=== PATIENT | male | born 1975 | race Caucasian/White ===

== ENCOUNTER 2021-03-09 21:53 | Inpatient (IN) | payer OTHER, SELFPAY ==
[~2021-03-09] VITALS: Ht 180.3 cm; Wt 120.2 kg
--- NOTE | 2021-03-09 21:54 | NUR ---
PT HIEN ALS. TAKEN TO BED 2
[2021-03-09 21:59] VITALS: BP 94/44
--- NOTE | 2021-03-09 21:59 | NUR ---
45 YO M BIBA WITH C/C OF GEN WEAKNESS X2 WKS. WHEN EMS ARRIVED PT WAS SOB AND DIAPHORETIC, PLACED ON 02 5L 02 SAT 96%. EMS STATED BP WAS FINE AND BEGAN DROPPING ON THE WAY HERE. BS WAS TOO HIGH TO READ FOR EMS. BLOOD SUGAR RETAKEN READ 556. PT STATED HE HAS ACHING ABD PAIN 4/10 NON RAD X1DAY. PT STATED HE HAS BEEN HAVING N/V/D, DARK STOOL AND EMESIS. PT IS JEHIVAH WITNESS, NO BLOOD PRODUCTS. BP 94/44 95% ON 5L. HX:DM NONCOMPLIANT RX;METFORMIN NKA.
[2021-03-09] MEDS ORDERED: PANTOPRAZOLE 40 MG INJ VIAL IVP ONE (22:25)
[2021-03-09] MEDS ORDERED: cefTRIAXone 2,000 MG in DEXTROSE 5% 100 ML IV ONE (22:25)
[2021-03-09] MEDS ORDERED: NACL 0.9% 1,000 ML IV ONE ×2 (22:25)
[2021-03-09] MEDS ORDERED: cefTRIAXone 1,000 MG VIAL ONE (22:32)
[2021-03-09 22:57] LABS: BASOPHILS # (AUTO) 0.1 K/uL (0.00-0.22); BASOPHILS % (AUTO) 0.4 % (0.0-2.0); EOSINOPHILS % (AUTO) 0.1 % (0.0-4.0); HEMATOCRIT 28.3 % (36-52); HEMOGLOBIN 9.4 g/dL (12.0-18.0); MEAN CORPUSCULAR HEMOGLOBIN 31 pg (27-31); MEAN CORPUSCULAR HGB CONC 33 g/dL (33-37); MEAN CORPUSCULAR VOLUME 93.1 fL (80-94); MONOCYTES # (AUTO) 1.3 K/uL (0.8-1.0); MONOCYTES % (AUTO) 6.3 % (1.7-9.3); NEUTROPHILS # (AUTO) 17.6 K/uL (1.8-7.7); NEUTROPHILS % (AUTO) 88.2 % (42.2-75.2); PLATELET COUNT (AUTO) 95 K/uL (140-450); RED BLOOD CELL COUNT(AUTO) 3.03 MIL/uL (4.20-6.10); RED CELL DISTRIBUTION WIDTH 12.8 % (11.6-13.7)
[2021-03-09 23:12] LABS: PROTHROMBIN TIME 13.4 secs (10.8-13.4)
[2021-03-09 23:21] LABS: ALBUMIN 1.5 g/dL (3.4-5.0); AMYLASE 37 U/L (25-115); ASPARTATE AMINOTRANSFERASE 23 U/L (15-37); CARBON DIOXIDE 14.2 mmol/L (21-32); CHLORIDE 91 mmol/L (98-107); CREATININE 2.3 mg/dL (0.6-1.3); GFR ARICAN-AMERICAN 40 mL/min (>90); LIPASE 459 U/L (73-393); POTASSIUM 4.2 mmol/L (3.5-5.1); SODIUM SERUM 126 mmol/L (136-145); TOTAL BILIRUBIN 0.9 mg/dL (0.0-1.0)
--- NOTE | 2021-03-09 23:23 | NUR ---
PT TAKEN TO XRAY VIA W/C
[2021-03-09 23:25] LABS: APPEARANCE,URINE CLOUDY (CLEAR); BILIRUBIN,URINE NEGATIVE (NEGATIVE); BLOOD, URINE NEGATIVE (NEGATIVE); COLOR,URINE YELLOW (YELLOW); LEUKOCYTE ESTERASE ,URINE NEGATIVE (NEGATIVE); NITRITE, URINE NEGATIVE (NEGATIVE); UGLUCOSE 2+ (NEGATIVE)
[2021-03-09 23:26] LABS: ACETONE, SERUM LARGE (NEGATIVE)
--- NOTE | 2021-03-09 23:26 | NUR ---
LAB REPORTED ACETONE POS LARGE, DR MONTOYA MADE AWARE.
[2021-03-09 23:28] LABS: GLUCOSE 685 mg/dL (74-106); UREA NITROGEN, BLOOD 102 mg/dL (7-18)
--- NOTE | 2021-03-09 23:29 | NUR ---
LAB REPORTED BLOOD GLUCOSE 685, DR MONTOYA MADE AWARE.
--- NOTE | 2021-03-09 23:35 | NUR ---
LAB REPORTED LACTIC ACIS 6.6, DR MONTOYA MADE AWARE.
[2021-03-10] VITALS (10 sets, daily range): BP systolic 99–160; BP diastolic 47–77
[2021-03-10] MEDS ORDERED: INSULIN REGULAR, HUMAN 100 UNIT in NACL 0.9% 100 ML IV ONE ×2 (00:05)
--- NOTE | 2021-03-10 00:50 | NUR ---
INCREASED RESP RATE AND USE OF ACCESORY MUSCLE, STRENAL RETRACTIONS CONTCARLOTA MADE AWARE.
--- NOTE | 2021-03-10 00:57 | NUR ---
RT AT BEDSIDE
--- NOTE | 2021-03-10 00:58 | NUR ---
PLACED PT ON BiPAP WITH PRESSURE SUPPORT OF 10. PT STILL BREATHING IN 60s. COMMUNICATE SETTINGS TO MD. MD CAME TO BEDSIDE AND SPOKE TO PT. PT REFUSED BiPAP. WILL CONTINUE TO MONITOR PT.
[2021-03-10] MEDS ORDERED: INSULIN REGULAR, HUMAN 100 UNIT in NACL 0.9% 100 ML IV SCH ×6 (01:05→05:25)
[2021-03-10] MEDS ORDERED: MORPHINE SULFATE 2 MG/ML SYR IVP PRN (01:05)
[2021-03-10] MEDS ORDERED: DEXTROSE 50% 50 ML SYR IVP PRN ×2 (01:05→05:25)
[2021-03-10] MEDS ORDERED: ONDANSETRON 4 MG/2 ML VIAL IVP PRN (01:05)
[2021-03-10] MEDS: NACL 0.9% 1,000 ML IV SCH ×2 (01:05→06:59)
--- NOTE | 2021-03-10 01:40 | NUR ---
PLACED PT ON HFNC 40L, 100%. TEMP 33. SPO2 99%. PT TOLERATING WELL. RN AND MD NOTIFIED.
[2021-03-10] MEDS: BLOOD GLUCOSE MONITORING 1 DEV DEV FS SCH ×24 (01:53→23:25)
[2021-03-10] MEDS ORDERED: cefTRIAXone 2,000 MG VIAL ONE (02:27)
[2021-03-10] MEDS ORDERED: cefTRIAXone 1,000 MG VIAL ONE (02:29)
[2021-03-10 04:20] LABS: CREATINE KINASE MB 0.3 ng/mL (0-3.6)
[2021-03-10 04:55] LABS: ANION GAP 24.1 (8-16); CARBON DIOXIDE 13.8 mmol/L (21-32); CREATININE 2.1 mg/dL (0.6-1.3); POTASSIUM 3.9 mmol/L (3.5-5.1)
--- NOTE | 2021-03-10 05:22 | NUR ---
INSERTED WEIGHT WRONG, CALLED TO CORRECT INSULIN ORDER. ORDER CARRIED OUT.
--- NOTE | 2021-03-10 05:50 | NUR ---
PAGED ABOUT PT'S CONDITION. RR FLUCTUATES BETWEEN 30-60. AT THIS TIME IT IS 60 AT REST AND HR CONTINUES TO BE HIGH. MENTATION IS BETTER. HR IS AT 120. WAITING FOR CALL BACK.
--- NOTE | 2021-03-10 06:09 | NUR ---
CALLED BACK STATED HE WILL PUT IN ORDERS.
--- NOTE | 2021-03-10 06:49 | NUR ---
BACK FROM CT.
[2021-03-10 06:54] LABS: HEMATOCRIT 24.8 % (36-52); HEMOGLOBIN 8.4 g/dL (12.0-18.0); MEAN CORPUSCULAR HEMOGLOBIN 31 pg (27-31); MEAN CORPUSCULAR HGB CONC 34 g/dL (33-37); MEAN CORPUSCULAR VOLUME 90.8 fL (80-94); PLATELET COUNT (AUTO) 136 K/uL (140-450); RED BLOOD CELL COUNT(AUTO) 2.73 MIL/uL (4.20-6.10); RED CELL DISTRIBUTION WIDTH 12.7 % (11.6-13.7); WHITE BLOOD COUNT (AUTO) 21.7 K/uL (4.8-10.8)
--- NOTE | 2021-03-10 07:04 | NUR ---
ORAL INTAKE 720 URINE OUTPUT:825
--- NOTE | 2021-03-10 07:09 | NUR ---
RT AT BEDSIDE.
[2021-03-10 07:11] LABS: ALBUMIN 1.5 g/dL (3.4-5.0); ANION GAP 17.1 (8-16); CREATININE 1.8 mg/dL (0.6-1.3); POTASSIUM 4.1 mmol/L (3.5-5.1); TOTAL BILIRUBIN 0.7 mg/dL (0.0-1.0)
[2021-03-10 07:16] LABS: BARBITURATE, URINE NEGATIVE ng/ml (NEG <=200); BENZODIAZEPINE, URINE NEGATIVE ng/mL (NEG <=200); CANNABINOID, URINE NEGATIVE ng/mL (NEG <=50); COCAINE, URINE NEGATIVE ng/mL (NEG <=300); OPIATE, URINE NEGATIVE ng/mL (NEG <=2000); PHENCYCLIDINE SCREEN,URINE NEGATIVE ng/mL (NEG <=25)
--- NOTE | 2021-03-10 07:30 | NUR ---
REPORT GIVEN TO ALONDRA GOVEA. TRANSFER OF CARE AT THIS TIME.
[2021-03-10 07:34] LABS: LYMPHOCYTES % (MANUAL) 2 % (20-46); MONOCYTES % (MANUAL) 5 % (5-12)
[2021-03-10] MEDS: PANTOPRAZOLE 40 MG INJ VIAL IVP SCH ×2 (08:50→21:00)
--- NOTE | 2021-03-10 08:55 | NUR ---
PATIENT HAS BEEN SCREENED AND CATEGORIZED HIGH NUTRITION RISK. PATIENT WILL BE SEEN WITHIN 1-2 DAYS OF ADMISSION. 03/10/21-03/11/[address]
[2021-03-10] MEDS ORDERED: VANCOMYCIN PER PHARMACY MC PRN (10:00)
--- NOTE | 2021-03-10 10:00 | NUR ---
RECEIVED REPORT FROM ER NURSE. ADMITTED 45 Y/O MALE WITH A CC OF GEN WEAKNESS FOR 2 WEEKS. ADMITTING DX OF DKA AND LUIS. ONLY REPORTED HX IS DM, NONCOMPLIANT WITH MEDS. PT VACCINATED FOR COVID. GOT Jusp VACCINE TWICE PER PT AND PER PT'S MOTHER. PT IS AOX2 WITH EPISODES OF CONFUSION, NO C/O PAIN AT THIS TIME, PT ON HIGH FLOW O2 30L 40% FIO2. WITH PERIPHERAL IV JORGE 18 AND LAC 20G RUNNING NS AT 30CC/HR AND INSULIN DRIP 0.1U/KG/HR. DRY WEIGHT 121KG. PEÑALOZA CATHETER INTACT, DRAINING WELL. PER ER NURSE, PT HAD BLACK TARRY STOOL, AWARE. ISOLATION AND SAFETY PRECAUTIONS IN PLACE. CALL LIGHT WITHIN REACH
[2021-03-10] MEDS: DEXT 5% /NACL 0.9% 1,000 ML IV SCH ×2 (10:40→22:40)
[2021-03-10] MEDS ORDERED: VANCOMYCIN 1,500 MG in NACL 0.9% 500 ML IV SCH (11:00)
--- NOTE | 2021-03-10 11:00 | NUR ---
CALLED DR CHRISTENSEN TO VERIFY IVF. CHANGED IVF TO NS 1L WITH K+ 20MEQ TO RUN 200CC/HR, SWITCH TO D5NS 100C/HR IF BS<200
[2021-03-10] MEDS: POTASSIUM CHL 20 MEQ/NACL 0.9% 1,000 ML IV SCH ×3 (11:24→20:08)
[2021-03-10] MEDS: CEFEPIME 2,000 MG in DEXTROSE 5% 100 ML IV SCH ×2 (13:00→21:00)
[2021-03-10 14:20] LABS: ANION GAP 18.6 (8-16); CARBON DIOXIDE 18.9 mmol/L (21-32); CREATININE 1.5 mg/dL (0.6-1.3); POTASSIUM 3.5 mmol/L (3.5-5.1)
[2021-03-10 14:24] LABS: MAGNESIUM 2.3 mg/dL (1.8-2.4); PHOSPHORUS 2.9 mg/dL (2.5-4.9)
--- NOTE | 2021-03-10 14:29 | NUR ---
BLOOD SUGAR 364, PT RESTING IN BED, NO C/O PAIN, TACHYPNEIC
--- NOTE | 2021-03-10 16:13 | NUR ---
03/10/21 RD INITIAL ASSESSMENT COMPLETED PLEASE REFER TO NUTRITION ASSESSMENT UNDER CARE ACTIVITY FOR ESTIMATED NUTRITIONAL NEEDS. 1. CONTINUE [facility] DIET TOLERATED 2. RD WILL PROVIDE DIABETES NUTRITION EDUCATION ON F/U VISIT 3. RD TO FOLLOW-UP 3-5 DAYS, MODERATE RISK YESI PINZON RD
[2021-03-10 17:10] LABS: ANION GAP 16.7 (8-16); CREATININE 1.4 mg/dL (0.6-1.3); POTASSIUM 3.7 mmol/L (3.5-5.1)
[2021-03-10 17:15] LABS: MAGNESIUM 2.4 mg/dL (1.8-2.4); PHOSPHORUS 2.8 mg/dL (2.5-4.9)
--- NOTE | 2021-03-10 18:25 | NUR ---
LATEST BS 284, ON INSULIN DRIP 0.1U/KG/HR
--- NOTE | 2021-03-10 19:15 | NUR ---
RECEIVED PATIENT ON BED AWAKE, ALERT, ORIENTED, FOLLOWS COMMANDS; VENTILATING ON 60% HIGH 02 BY NASAL CANNULA; SO2 98%. CARDIACSCOPE SHOWS ON SINUS TACHY HR 125/MIN. IVF IN PROGRESS NORMAL SALINE WITH 20 MEQ KCL AT 200 ML/HR ALTERNATE WITH D5 NS 100 ML/HR ACCORDING TO BLOOD SUGAR RESULT PER DKA PROTOCOL; AND WITH REGULAR INSULIN DRIP AT 0.1 UNIT/KG/HR VIA PERIPHERAL LINE TO LEFT ARM; PATENT AND INTACT. ABDOMEN IS SOFT; SOMEWHAT OBESE; KEPT NPO ORDERED. WITH PEÑALOZA CATH IN SITU TO GRAVITY DRAINAGE BAG DRAINING TO CLOUDY URINE OUTPUT; INTACT.
[2021-03-10 20:03] LABS: ANION GAP 14.7 (8-16); CARBON DIOXIDE 22.9 mmol/L (21-32); CREATININE 1.1 mg/dL (0.6-1.3); POTASSIUM 3.6 mmol/L (3.5-5.1)
--- NOTE | 2021-03-10 22:00 | NUR ---
ABLE TO TURN AND REPOSITIONED BY HIMSELF
[2021-03-11] VITALS (16 sets, daily range): BP systolic 119–163; BP diastolic 53–82
[2021-03-11 00:08] LABS: MAGNESIUM 2.4 mg/dL (1.8-2.4); PHOSPHORUS 2.5 mg/dL (2.5-4.9)
[2021-03-11] MEDS: BLOOD GLUCOSE MONITORING 1 DEV DEV FS SCH ×14 (00:25→21:00)
[2021-03-11 01:11] LABS: ANION GAP 16.2 (8-16); CARBON DIOXIDE 20.3 mmol/L (21-32); POTASSIUM 3.5 mmol/L (3.5-5.1)
[2021-03-11 01:13] LABS: MAGNESIUM 2.2 mg/dL (1.8-2.4); PHOSPHORUS 2.4 mg/dL (2.5-4.9)
[2021-03-11] MEDS: POTASSIUM CHL 20 MEQ/NACL 0.9% 1,000 ML IV SCH ×3 (01:25→10:50)
[2021-03-11 02:25] LABS: CREATINE KINASE MB 0.1 ng/mL (0-3.6)
--- NOTE | 2021-03-11 03:00 | NUR ---
HAD BM TO A LARGE AMOUNT OF TARRY BLACK STOOL;KEPT CLEAN, DRY AND COMFORTABLE.
[2021-03-11] MEDS: CEFEPIME 2,000 MG in DEXTROSE 5% 100 ML IV SCH ×3 (05:56→21:58)
[2021-03-11 06:42] LABS: ANION GAP 13.6 (8-16); CARBON DIOXIDE 22.1 mmol/L (21-32); CREATININE 0.9 mg/dL (0.6-1.3); POTASSIUM 3.7 mmol/L (3.5-5.1)
[2021-03-11 06:49] LABS: ALBUMIN 1.2 g/dL (3.4-5.0); ANION GAP 14.5 (8-16); CARBON DIOXIDE 22.2 mmol/L (21-32); MAGNESIUM 2.3 mg/dL (1.8-2.4); POTASSIUM 3.7 mmol/L (3.5-5.1); TOTAL BILIRUBIN 0.9 mg/dL (0.0-1.0)
[2021-03-11 07:04] LABS: BASOPHILS % (AUTO) 0.1 % (0.0-2.0); MONOCYTES # (AUTO) 1.6 K/uL (0.8-1.0)
[2021-03-11 07:14] LABS: EOSINOPHILS % (AUTO) 0.1 % (0.0-4.0); LYMPHOCYTES # (AUTO) 0.8 K/uL (2.0-11.5); LYMPHOCYTES % (AUTO) 5.5 % (20.5-51.1); MEAN CORPUSCULAR HEMOGLOBIN 31 pg (27-31); MEAN CORPUSCULAR HGB CONC 34 g/dL (33-37); MEAN CORPUSCULAR VOLUME 90.2 fL (80-94); MONOCYTES % (AUTO) 10.2 % (1.7-9.3); NEUTROPHILS # (AUTO) 12.9 K/uL (1.8-7.7); NEUTROPHILS % (AUTO) 84.1 % (42.2-75.2); PLATELET COUNT (AUTO) 147 K/uL (140-450); RED BLOOD CELL COUNT(AUTO) 2.13 MIL/uL (4.20-6.10); RED CELL DISTRIBUTION WIDTH 12.7 % (11.6-13.7); WHITE BLOOD COUNT (AUTO) 15.3 K/uL (4.8-10.8)
[2021-03-11 07:16] LABS: MAGNESIUM 2.2 mg/dL (1.8-2.4); PHOSPHORUS 2.4 mg/dL (2.5-4.9)
[2021-03-11] MEDS: DEXT 5% /NACL 0.9% 1,000 ML IV SCH (07:29)
--- NOTE | 2021-03-11 07:30 | NUR ---
RECEIVED REPORT FROM GENERAL ACCOUNTING MANAGER NURSE. 45 Y/O MALE WITH A CC OF GEN WEAKNESS FOR 2 WEEKS. ADMITTING DX OF DKA AND LUIS. ONLY REPORTED HX IS DM, NONCOMPLIANT WITH MEDS. PT VACCINATED FOR COVID. GOT [employer] VACCINE TWICE PER PT AND PER PT'S MOTHER. PT IS AOX4, NO C/O PAIN AT THIS TIME, PT ON HIGH FLOW O2 30L 40% FIO2. WITH PERIPHERAL IV JORGE 18 AND LAC 20G RUNNING D5NS 100CC/HR AND INSULIN DRIP 0.05U/KG/HR. DRY WEIGHT 121KG. PEÑALOZA CATHETER INTACT, DRAINING WELL. PER NIGHT RN NURSE, PT HAD BLACK TARRY STOOL, AWARE. ISOLATION AND SAFETY PRECAUTIONS IN PLACE. CALL LIGHT WITHIN REACH
[2021-03-11 08:02] LABS: HEMATOCRIT 19.2 % (36-52); HEMOGLOBIN 6.5 g/dL (12.0-18.0)
--- NOTE | 2021-03-11 08:30 | NUR ---
RECEIVED CALL FROM LAB [facility] 6.5, PAGED DR ASH, COVERING FOR DR SIDDIQUI, AWAITING CALL BACK
[2021-03-11] MEDS: PANTOPRAZOLE 40 MG INJ VIAL IVP SCH (08:49)
--- NOTE | 2021-03-11 09:00 | NUR ---
CALLED DR ASH, ORDERED PROTONIX DRIP, IV IRON AND OBTAIN CONSENT FOR EGD
[2021-03-11 10:00] LABS: MAGNESIUM 2.2 mg/dL (1.8-2.4); PHOSPHORUS 3.1 mg/dL (2.5-4.9)
[2021-03-11 10:36] LABS: ANION GAP 13.9 (8-16); CARBON DIOXIDE 21.6 mmol/L (21-32); CREATININE 0.8 mg/dL (0.6-1.3); POTASSIUM 3.5 mmol/L (3.5-5.1)
[2021-03-11] MEDS: VANCOMYCIN HCL 1.25 GM in DEXTROSE 5% 250 ML IV SCH ×2 (10:46→17:45)
[2021-03-11] MEDS ORDERED: MIDAZOLAM 5 MG/5 ML VIAL ONE (10:48)
[2021-03-11] MEDS ORDERED: fentaNYL citrate 0.05 MG/ML VIAL ONE (10:48)
[2021-03-11] MEDS ORDERED: diphenhydrAMINE 50 MG/ML VIAL ONE (10:48)
--- NOTE | 2021-03-11 11:22 | NUR ---
PT OFF UNIT TO OR
[2021-03-11] MEDS: PANTOPRAZOLE 80 MG in NACL 0.9% 100 ML IVP SCH ×2 (12:00→21:58)
[2021-03-11] MEDS ORDERED: SODIUM FERRIC GLUCONATE 125 MG in NACL 0.9% 100 ML IV SCH (12:00)
--- NOTE | 2021-03-11 12:15 | NUR ---
PT BACK TO UNIT, AOX4, WITH C/O ABD PAIN, TACHYPNEIC, PLACED BACK ON HIGH FLOW 25L
--- NOTE | 2021-03-11 12:20 | NUR ---
SEEN BY DR JO ORDERED TO STOP DKA PROTOCOL, START LANTUS 20U DAILY
[2021-03-11] MEDS ORDERED: EPINEPHrine PFS 0.1 MG/ML SYR IVP ONE ×3 (12:29→12:30)
[2021-03-11] MEDS ORDERED: fentaNYL citrate 0.05 MG/ML VIAL IVP ONE (12:30)
[2021-03-11] MEDS ORDERED: MIDAZOLAM 2 MG/2 ML VIAL IVP ONE (12:30)
[2021-03-11] MEDS ORDERED: FOLIC ACID 5 MG/ML SYR IV SCH (12:41)
[2021-03-11] MEDS ORDERED: INSULIN LISPRO SLIDING SCALE 100 UNITS/ML VIAL SUBQ PRN (13:10)
[2021-03-11] MEDS ORDERED: DEXTROSE 50% 50 ML SYR IVP PRN (13:10)
[2021-03-11 13:13] LABS: MAGNESIUM 2.2 mg/dL (1.8-2.4); PHOSPHORUS 3.3 mg/dL (2.5-4.9)
[2021-03-11 13:28] LABS: ANION GAP 19.6 (8-16); CARBON DIOXIDE 16.8 mmol/L (21-32); CREATININE 0.9 mg/dL (0.6-1.3); POTASSIUM 3.4 mmol/L (3.5-5.1)
[2021-03-11] MEDS: ACETAMINOPHEN 325 MG TAB PO PRN (13:34)
[2021-03-11] MEDS: INSULIN LANTUS 100 UNITS/ML 10 ML VIAL SUBQ SCH (13:34)
[2021-03-11] MEDS: INSULIN LISPRO SLIDING SCALE 100 UNITS/ML VIAL SUBQ PRN (13:35)
[2021-03-11] MEDS ORDERED: POTASSIUM CHLORIDE 10 MEQ TABER PO PRN (14:55)
[2021-03-11] MEDS ORDERED: BLOOD GLUCOSE MONITORING 1 DEV DEV FS SCH (16:30)
--- NOTE | 2021-03-11 16:45 | NUR ---
PT RESTING IN BED, NO C/O PAIN, NO SOB ON 25L HIGH FLOW
[2021-03-11] MEDS: LANSOPRAZOLE 30 MG CAPDR PO SCH (17:45)
[2021-03-11] MEDS: SUCRALFATE 1 GM TAB PO SCH (17:45)
--- NOTE | 2021-03-11 18:00 | NUR ---
PT EATING DINNER. FAMILY BY THE DOOR, NO COMPLAINTS AT THIS TIME
--- NOTE | 2021-03-11 19:25 | NUR ---
RECEIVED PATIENT ON BED AWAKE, ALERT AND ORIENTED; MOVES LIMBS FREELY. CARDIACSCOPE SHOWS ON SINUS TACHY HR 102/MIN. COMMENCING ON IV PROTONIX AT 8 MG/HR VIA PERIPHERAL TO LEFT ARM AND ON D5NS 100ML/HR. ABDOMEN IS SOFT; HYPOACTIVE BOWEL SOUNDS.WITH PEÑALOZA CATH IN SITU TO GRAVITY DRAINAGE BAG DRAINING TO CLOUDY EHSAN COLOR URINE OUTPUT; PATENT AND INTACT.
[2021-03-11 19:58] LABS: HEMATOCRIT 17.8 % (36-52)
[2021-03-11 20:00] LABS: HEMOGLOBIN 6.1 g/dL (12.0-18.0)
--- NOTE | 2021-03-11 21:00 | NUR ---
ACCUCHECK DONE; 6 UNITS INSULIN LISPRO GIVEN PER SLIDING SCALE.
[2021-03-12] VITALS (16 sets, daily range): BP systolic 101–150; BP diastolic 53–87
[2021-03-12] MEDS: VANCOMYCIN HCL 1.25 GM in DEXTROSE 5% 250 ML IV SCH (01:52)
[2021-03-12] MEDS: CEFEPIME 2,000 MG in DEXTROSE 5% 100 ML IV SCH ×2 (05:27→13:22)
--- NOTE | 2021-03-12 05:30 | NUR ---
STILL TACHYAPNEIC; ABG DONE BY RT AND PATIENT WAS SEEN BY THE ER MD,NO POSSIBLE INTUBATION AT THIS TIME. CLOSE OBSERVATION DONE.
[2021-03-12] MEDS: SUCRALFATE 1 GM TAB PO SCH ×4 (06:00→18:01)
[2021-03-12 06:50] LABS: BASOPHILS % (AUTO) 0.1 % (0.0-2.0); EOSINOPHILS # (AUTO) 0.1 K/uL (0-0.4); EOSINOPHILS % (AUTO) 0.4 % (0.0-4.0); LYMPHOCYTES % (AUTO) 7.6 % (20.5-51.1); MEAN CORPUSCULAR HEMOGLOBIN 31 pg (27-31); MEAN CORPUSCULAR HGB CONC 33 g/dL (33-37); MEAN CORPUSCULAR VOLUME 92.5 fL (80-94); MONOCYTES # (AUTO) 1.3 K/uL (0.8-1.0); MONOCYTES % (AUTO) 9.7 % (1.7-9.3); NEUTROPHILS # (AUTO) 11.4 K/uL (1.8-7.7); NEUTROPHILS % (AUTO) 82.2 % (42.2-75.2); PLATELET COUNT (AUTO) 171 K/uL (140-450); RED BLOOD CELL COUNT(AUTO) 2.01 MIL/uL (4.20-6.10); RED CELL DISTRIBUTION WIDTH 12.8 % (11.6-13.7); WHITE BLOOD COUNT (AUTO) 13.8 K/uL (4.8-10.8)
[2021-03-12 06:53] LABS: HEMOGLOBIN 6.2 g/dL (12.0-18.0)
[2021-03-12 06:54] LABS: HEMATOCRIT 18.6 % (36-52)
[2021-03-12 07:08] LABS: ALBUMIN 1.3 g/dL (3.4-5.0); ANION GAP 12.3 (8-16); CARBON DIOXIDE 23.7 mmol/L (21-32); CREATININE 0.8 mg/dL (0.6-1.3); TOTAL BILIRUBIN 0.9 mg/dL (0.0-1.0)
--- NOTE | 2021-03-12 07:15 | NUR ---
ENDORSED TO AM SHIFT ALONDRA NGUYEN FOR CONTINUITY OF CARE.
--- NOTE | 2021-03-12 07:20 | NUR ---
RECEIVED PATIENT ON BED SLEEPING. RESPONSIVE TO VERBAL AND TACTILE STIMULI. ABLE TO MAKE NEEDS KNOWN. RESPIRATIONS ARE TACHYPNEA AT 40 WITH NO RESPIRATORY DISTRESS SATURATING AT 95% ON HFNC 35L AT 100% FIO2.ST ON MONITOR AT 102. RAC 22G IS CLEAN, DRY, AND INTACT. HYPOACTIVE BOWEL SOUNDS.WITH PEÑALOZA CATH IN SITU TO GRAVITY DRAINAGE BAG DRAINING TO CLOUDY EHSAN COLOR URINE OUTPUT. NO SIGNS OF BLEEDING. SAFETY MEASURES IN PLACE, WILL CONTINUE TO MONITOR.
[2021-03-12 07:33] LABS: MAGNESIUM 1.9 mg/dL (1.8-2.4); PHOSPHORUS 3.1 mg/dL (2.5-4.9)
[2021-03-12] MEDS: BLOOD GLUCOSE MONITORING 1 DEV DEV FS SCH ×4 (08:25→23:08)
[2021-03-12] MEDS: LANSOPRAZOLE 30 MG CAPDR PO SCH ×2 (08:38→16:11)
[2021-03-12] MEDS: INSULIN LISPRO SLIDING SCALE 100 UNITS/ML VIAL SUBQ PRN ×3 (08:43→23:14)
[2021-03-12] MEDS: ACETAMINOPHEN 325 MG TAB PO PRN (08:43)
[2021-03-12] MEDS: INSULIN LANTUS 100 UNITS/ML 10 ML VIAL SUBQ SCH (08:43)
[2021-03-12] MEDS: PANTOPRAZOLE 80 MG in NACL 0.9% 100 ML IVP SCH ×2 (08:50→18:01)
[2021-03-12] MEDS: FOLIC ACID 1 MG TAB PO SCH (09:00)
--- NOTE | 2021-03-12 09:15 | NUR ---
ADMINISTERED SCHED MED PRESCRIBED PER MD ORDER. PT TOLERATED WELL. MEDICATION EDUCATION PERFORMED. PT NEEDS MORE REINFORCEMENT. SAFETY MEASURES IN PLACE. WILL CONTINUE TO MONITOR
--- NOTE | 2021-03-12 10:15 | NUR ---
PT DAUGHTER CALLED AND WANTED UPDATE. UPDATE. GIVEN. SAFETY MEASURES IN PLACE. WILL CONTINUE TO MONITOR
[2021-03-12] MEDS ORDERED: DEXMEDETOMIDINE HCL 400 MCG in NACL 0.9% 96 ML IV PRN (11:15)
--- NOTE | 2021-03-12 11:30 | NUR ---
PT BLOOD SUGAR 301. INSULIN TO BE ADMINISTERED PRESCRIBED PER MD ORDER. SAFETY MEASURES IN PLACE. WILL CONTINUE TO MONITOR
[2021-03-12] MEDS ORDERED: INSULIN LANTUS 100 UNITS/ML 10 ML VIAL SUBQ SCH (11:45)
[2021-03-12] MEDS: VANCOMYCIN 1,500 MG in DEXTROSE 5% 500 ML IV SCH ×2 (12:00→20:30)
[2021-03-12] MEDS ORDERED: SODIUM FERRIC GLUCONATE 125 MG in NACL 0.9% 100 ML IV SCH (12:00)
--- NOTE | 2021-03-12 13:25 | NUR ---
ADMINISTERED SCHED MED PRESCRIBED PER MD ORDER. PT TOLERATED WELL. SAFETY MEASURES IN PLACE. WILL CONTINUE TO MONITOR
--- NOTE | 2021-03-12 13:47 | NUR ---
03/12/21 RD FOLLOW UP COMPLETED PLEASE REFER TO NUTRITION PROGRESS NOTE UNDER CARE ACTIVITY FOR ESTIMATED NUTRITION NEEDS. RD RECOMMENDATIONS: 1. CONTINUE CCHO 60 GM DIET TOLERATED 2. RD WILL PROVIDE DIABETES NUTRITION EDUCATION ON F/U VISIT 3. RD TO FOLLOW-UP 3-5 DAYS, MODERATE RISK GABRIELLE CAZARES, RD
--- NOTE | 2021-03-12 14:20 | NUR ---
PT DAUGHTER CALLED AND WANTED UPDATE. UPDATE. GIVEN. SAFETY MEASURES IN PLACE. WILL CONTINUE TO MONITOR
[2021-03-12] MEDS ORDERED: ALPRAZolam 0.5 MG TAB PO PRN (15:55)
--- NOTE | 2021-03-12 16:00 | NUR ---
PT HAD ONE EPISODE OF BLOODY TARRY STOOL. PT DENIES ANY PAIN OR N/V. SPECIMEN COLLECTED PER MD ORDER AND SENT TO LAB. AWAITING RESULTS. SAFETY MEASURES IN PLACE. WILL CONTINUE TO MONITOR
--- NOTE | 2021-03-12 16:11 | NUR ---
PT COMPLAINED OF RESTLESSNESS AND ANXIETY WITH HIGH RESPIRATION RATE. PRN XANAX ADMINISTERED PRESCRIBED PER MD ORDER. MEDICATION EDUCATION PERFORMED. PT VERBALIZED UNDERSTANDING. SAFETY MEASURES IN PLACE. WILL CONTINUE TO MONITOR
--- NOTE | 2021-03-12 17:50 | NUR ---
MOM AT BEDSIDE VISITING PATIENT
--- NOTE | 2021-03-12 19:10 | NUR ---
ENDORSED TO NIGHTSHIFT NURSE FOR CONTINUITY OF CARE
--- NOTE | 2021-03-12 19:15 | NUR ---
RECEIVED PATIENT ON BED, ALERT AND ORIENTED; ON 30% HIGH FLOW O2/NC. CARDIACSCOPE SHOWS ON SINUS TACHY 105/MIN NO ARRHYTHMIAS SEEN; TACHYAPNEIC RR 29/MIN. COMMENCING PROTONIX DRIP AT 8 MG/HR VIA PERIPHERAL ON RIGHT AC, PATENT AND INTACT. ABDOMEN IS SOFT AND OBESE, ACTIVE BOWEL SOUNDS. WITH PEÑALOZA CATH IN PLACE TO GRAVITY DRAINAGE BAG DRAINING TO EHSAN COLOR URINE OUTPUT; INTACT,
--- NOTE | 2021-03-12 22:00 | NUR ---
SEEN AND EXAMINED BY KARLI LACY; WITH ORDERS CARRIED OUT.
[2021-03-13] VITALS (18 sets, daily range): BP systolic 105–159; BP diastolic 57–97
--- NOTE | 2021-03-13 | NUR ---
HAD FEVER 101.2; COOLING MEASURES DONE; TYLENOL 650 MG PO GIVEN.
[2021-03-13] MEDS: SUCRALFATE 1 GM TAB PO SCH ×4 (00:12→17:47)
[2021-03-13] MEDS: ACETAMINOPHEN 325 MG TAB PO PRN ×2 (00:13→13:13)
[2021-03-13] MEDS: PIPERACILLIN/TAZOBACTAM 3.375 GM in DEXTROSE 5% 50 ML IV SCH ×4 (00:23→18:29)
--- NOTE | 2021-03-13 01:00 | NUR ---
STILL WITH SLIGHT FEVER 100F; COOLING MEASURES CONTINUED;WILL CONTINUE TO MONITOR.
--- NOTE | 2021-03-13 03:00 | NUR ---
FOR SPUTUM [employer] X3 [address] AP[address] ORDERED BY DR. Zi LACY; BUT PATIENT NO SPUTUM SPECIMEN RIGHT NOW.
[2021-03-13] MEDS: PANTOPRAZOLE 80 MG in NACL 0.9% 100 ML IVP SCH ×2 (04:00→15:31)
[2021-03-13] MEDS: VANCOMYCIN 1,500 MG in DEXTROSE 5% 500 ML IV SCH ×3 (04:30→19:42)
[2021-03-13] MEDS ORDERED: VANCOMYCIN 500 MG VIAL ONE (04:32)
[2021-03-13 06:52] LABS: ANION GAP 12.2 (8-16); CARBON DIOXIDE 23.5 mmol/L (21-32); CREATININE 0.7 mg/dL (0.6-1.3); POTASSIUM 3.7 mmol/L (3.5-5.1)
[2021-03-13] MEDS: ALBUMIN HUMAN 25% 100 ML IV SCH ×3 (07:00→23:37)
--- NOTE | 2021-03-13 07:25 | NUR ---
BEDSIDE REPORT RECIEVED FROM OFFICE TECHNICIAN NURSE, PT AWAKE ALERT CALM OX3, RESP EVEN UNLABORED, TACHYPNEAC WITH HIGH FLOW O2 VIA NC 30L 90% FIO2, O2SAT 100%, BS DIMINISHED, SKIN WARM DRY COLOR WNL, CAP REFILL <3SEC, PIV 22G TO RITHT AC, INFUSING PROTONIX DRIP AT 8MG/HR, ABD SOFT, NON DISTENDED, NON TENDER, NO ACTIVE BLEEDING AT THIS TIME, PEÑALOZA CATH IN PLACE, DRAINING WELL, PLAN OF CARE REVEWED, ALL SAFETY MEASURES IN PLACE.
[2021-03-13] MEDS: BLOOD GLUCOSE MONITORING 1 DEV DEV FS SCH ×4 (07:30→21:00)
--- NOTE | 2021-03-13 07:45 | NUR ---
ENDORSED TO AM SHIFT RN KENIA FOR CONTINUITY OF CARE.
--- NOTE | 2021-03-13 09:05 | NUR ---
PT TAKEN TO CT FOR ABD/PEL WITH RN AND RT, RETURNED BACK TO ICU1. NO ADVERSE EVENTS REPORTED.
[2021-03-13] MEDS: INSULIN LISPRO SLIDING SCALE 100 UNITS/ML VIAL SUBQ PRN ×3 (09:28→17:47)
[2021-03-13] MEDS: INSULIN LANTUS 100 UNITS/ML 10 ML VIAL SUBQ SCH (09:28)
[2021-03-13] MEDS: LANSOPRAZOLE 30 MG CAPDR PO SCH ×2 (09:30→17:47)
[2021-03-13] MEDS: FOLIC ACID 1 MG TAB PO SCH (10:02)
[2021-03-13 10:41] LABS: BASOPHILS # (AUTO) 0.1 K/uL (0.00-0.22); BASOPHILS % (AUTO) 0.5 % (0.0-2.0); EOSINOPHILS # (AUTO) 0.1 K/uL (0-0.4); EOSINOPHILS % (AUTO) 0.8 % (0.0-4.0); MEAN CORPUSCULAR HEMOGLOBIN 32 pg (27-31); MEAN CORPUSCULAR HGB CONC 34 g/dL (33-37); MEAN CORPUSCULAR VOLUME 93.2 fL (80-94); MONOCYTES # (AUTO) 0.9 K/uL (0.8-1.0); MONOCYTES % (AUTO) 5.3 % (1.7-9.3); NEUTROPHILS # (AUTO) 14.9 K/uL (1.8-7.7); NEUTROPHILS % (AUTO) 87.4 % (42.2-75.2); PLATELET COUNT (AUTO) 259 K/uL (140-450); RED BLOOD CELL COUNT(AUTO) 1.84 MIL/uL (4.20-6.10); RED CELL DISTRIBUTION WIDTH 12.9 % (11.6-13.7)
[2021-03-13 10:53] LABS: HEMATOCRIT 17.2 % (36-52); HEMOGLOBIN 5.9 g/dL (12.0-18.0)
--- NOTE | 2021-03-13 11:21 | NUR ---
DR JURADO AT BEDSIDE.
[2021-03-13] MEDS ORDERED: ALBUMIN HUMAN 25% 100 ML IV SCH (11:30)
--- NOTE | 2021-03-13 12:10 | NUR ---
DC PLANN[age] YRS OLD MALE PATIENT WAS ADMITTED FROM HOME WITH A DX OF DKA, LUIS. BLOOD GLUCOSE WAS 685 AG 25.0. PATIENT HAS A HX OF DM. CXR SHOWED MULTIFOCAL PNEUMONIA, CT CHEST MULTIPLE NODULAR CONSOLIDATIONS THROUGHOUT THE LUNG. ABDOMINAL SERIES AND CT ABD SHOWED BILATERAL OPACITIES SUGGESTIVE OF MULTIFOCAL PNEUMONIA. H/H 6.5/19.2 . PT IS JEHOVAH WITNESS. ADMINISTERED INSULIN DRIP, IVF, IV ABX ZOSYN AND VANCOMYCIN. CONSULTED WITH NEPHRO, PULMO GI AND ID. DC PLAN PER PATIENT RESPOND TO THE TREATMENT.
[2021-03-13] MEDS ORDERED: SODIUM FERRIC GLUCONATE 125 MG in NACL 0.9% 100 ML IV SCH (12:20)
--- NOTE | 2021-03-13 13:25 | NUR ---
TEMP 101.5 TYLENOL GIVEN
--- NOTE | 2021-03-13 15:30 | NUR ---
BED BATH GIVEN, PERICARE DONE, PEÑALOZA CARE DONE, LINEN AND GOWN CHANGED, PT ABLE TO TURN SIDE TO SIDE WITHOUT PROBLEM
[2021-03-13 15:33] LABS: ANTI-NUCLEAR ANTIBODY,DIRECT Negative (Negative)
--- NOTE | 2021-03-13 18:22 | NUR ---
SPEAKING WITH SISTER ON THE PHONE VIA WINDOW, PT SITTING UP AT SIDE OF BED, APPEARS HAPPY IN NO ACUTE DISTRESS.
--- NOTE | 2021-03-13 18:30 | NUR ---
SISTER AND MOTHER TOOK TURNS TO VISIT FROM WINDOW
--- NOTE | 2021-03-13 18:45 | NUR ---
PT SITTING UP FOR DINNER
--- NOTE | 2021-03-13 19:30 | NUR ---
RECEIVED PATIENT ON BED, AWAKE , ALERT AND ORIENTED ABLE TO MOVE LIMBS FREELY. VENTILATING ON 45% THEODORE FLOW 02 PER NASAL CANNULA. CARDIACSCOPE SHOWS ON SINUS TACHY HR 105/MIN. COMMENCING ON IV PROTONIX 8 MG/HR VIA PERIPHERAL LINE RIGHT AC; PATENT AND INTACT. ABDOMEN IS SOFT AND OBESE; ACTIVE BOWEL SOUNDS. WITH PEÑALOZA CATH IN PLACE TO GRAVITY DRAINAGE BAG; DRAINING TO EHSAN COLOR URINE OUTPUT; INTACT.
--- NOTE | 2021-03-13 20:30 | NUR ---
PATIENT ACCIDENTALLY PULLED OUT HIS IV LINE; INSERTED A NEW IV CANNULA G 22 ON RIGHT HAND.
[2021-03-14] VITALS (20 sets, daily range): BP systolic 13–144; BP diastolic 54–94
--- NOTE | 2021-03-14 00:30 | NUR ---
SPUTUM SAMPLE #3 FOR [employer] SENT TO THE LAB.
--- NOTE | 2021-03-14 01:00 | NUR ---
HAD BM TO A LARGE AMOUNT OF LOOSE DARK BROWN STOOL; KEPT CLEAN DRY AND COMFORTABLE.
[2021-03-14] MEDS: PIPERACILLIN/TAZOBACTAM 3.375 GM in DEXTROSE 5% 50 ML IV SCH ×5 (06:20→17:20)
[2021-03-14] MEDS: SUCRALFATE 1 GM TAB PO SCH ×4 (06:20→17:20)
[2021-03-14] MEDS: VANCOMYCIN 1,500 MG in DEXTROSE 5% 500 ML IV SCH ×3 (06:35→20:00)
[2021-03-14 06:45] LABS: ANION GAP 10.4 (8-16); CARBON DIOXIDE 25.1 mmol/L (21-32); CREATININE 0.7 mg/dL (0.6-1.3); POTASSIUM 3.5 mmol/L (3.5-5.1)
[2021-03-14] MEDS ORDERED: VANCOMYCIN 1,000 MG VIAL ONE (06:57)
--- NOTE | 2021-03-14 07:00 | NUR ---
PATIENT IS AOX4, ABLE TO MAKE NEEDS KNOWN, AIRBORNE PRECAUTIONS FOR RULE OUT TB. ST ON MONITOR. ON HIGH FLOW NASAL CANNULA. IV CLEAN, DRY, AND INTACT, RIGHT HAND 22G. SEISMIC OBSERVER, PULSE OXIMETER, AND SAFETY MEASURES IN PLACE. BED IN LOW POSITION, BED LOCKED, HEAD OF BED 30 DEGREES. CALL LIGHT WITHIN REACH. WILL CONTINUE TO MONITOR. PER TELEVISION NEWS PRODUCER RN NO IV ACCESS AT 1999, INSERTED PERIPHERAL IV TO RIGHT HAND AND ADMINISTERED ALBUMIN AROUND 2330.
[2021-03-14] MEDS: BLOOD GLUCOSE MONITORING 1 DEV DEV FS SCH ×4 (08:17→21:00)
[2021-03-14] MEDS: FOLIC ACID 1 MG TAB PO SCH (08:19)
[2021-03-14] MEDS: INSULIN LANTUS 100 UNITS/ML 10 ML VIAL SUBQ SCH (08:19)
[2021-03-14] MEDS: LANSOPRAZOLE 30 MG CAPDR PO SCH ×2 (08:19→17:01)
[2021-03-14] MEDS: INSULIN LISPRO SLIDING SCALE 100 UNITS/ML VIAL SUBQ PRN ×4 (08:20→22:33)
--- NOTE | 2021-03-14 08:20 | NUR ---
CHECKED PATIENTS BLOOD SUGAR, 234, COVERED WITH 4 UNITS OF INSULIN. ADMINISTERED SCHEDULED AM MEDICATIONS. ORAL CARE, HYGIENE CARE, PEÑALOZA CARE, AND CHG BATH. WILL CONTINUE TO MONITOR.
[2021-03-14] MEDS: PANTOPRAZOLE 80 MG in NACL 0.9% 100 ML IVP SCH ×3 (10:00)
[2021-03-14 10:42] LABS: EOSINOPHILS # (AUTO) 0.6 K/uL (0-0.4); MEAN CORPUSCULAR HEMOGLOBIN 32 pg (27-31); MONOCYTES % (AUTO) 6.5 % (1.7-9.3); NEUTROPHILS # (AUTO) 11.6 K/uL (1.8-7.7); NEUTROPHILS % (AUTO) 79.7 % (42.2-75.2); RED BLOOD CELL COUNT(AUTO) 1.68 MIL/uL (4.20-6.10); WHITE BLOOD COUNT (AUTO) 14.6 K/uL (4.8-10.8)
[2021-03-14 10:48] LABS: BASOPHILS # (AUTO) 0.2 K/uL (0.00-0.22); BASOPHILS % (AUTO) 1.1 % (0.0-2.0); LYMPHOCYTES # (AUTO) 1.3 K/uL (2.0-11.5); LYMPHOCYTES % (AUTO) 8.7 % (20.5-51.1); MEAN CORPUSCULAR HGB CONC 34 g/dL (33-37); MONOCYTES # (AUTO) 0.9 K/uL (0.8-1.0); PLATELET COUNT (AUTO) 299 K/uL (140-450); RED CELL DISTRIBUTION WIDTH 12.6 % (11.6-13.7)
[2021-03-14 11:00] LABS: HEMATOCRIT 15.5 % (36-52); HEMOGLOBIN 5.3 g/dL (12.0-18.0)
--- NOTE | 2021-03-14 12:15 | NUR ---
CHECKED BLOOD SUGAR, 300, 6 UNITS COVERED PER MD SLIDING SCALE. WILL CONTINUE TO MONITOR.
--- NOTE | 2021-03-14 12:45 | NUR ---
DR. ADRIEN GALVIN. UPDATED ON PATIENT STATUS AND CONDITION. AWARE H&H ARE LOW. WILL CONTINUE TO MONITOR.
--- NOTE | 2021-03-14 15:00 | NUR ---
PATIENT REMOVED IV ACCIDENTALLY. NEW IV INSERTED IN RIGHT FOREARM. INFUSING VANCOMYCIN. WILL CONTINUE TO MONITOR.
--- NOTE | 2021-03-14 18:00 | NUR ---
DR. SANDRO GALVIN. UPDATED ON STATUS AND CONDITION. AWARE PATIENTS FIO2 45% HIGH FLOW NC AND H&H LOW. WILL CONTINUE TO MONITOR.
[2021-03-14 18:02] LABS: ANTI DOUBLE STRANDED DNA AB <1 IU/mL (0 - 9)
[2021-03-14] MEDS ORDERED: INSULIN LANTUS 100 UNITS/ML 10 ML VIAL SUBQ SCH (18:30)
--- NOTE | 2021-03-14 19:36 | NUR ---
ENDORSED TO LINE RUNNER RN FOR CONTINUITY OF CARE.
[2021-03-14] MEDS: SODIUM FERRIC GLUCONATE 125 MG in NACL 0.9% 100 ML IV SCH (20:00)
[2021-03-14] MEDS ORDERED: SODIUM FERRIC GLUCONATE 12.5 MG/ML AMP IV ONE (22:36)
[2021-03-15] VITALS (24 sets, daily range): BP systolic 106–143; BP diastolic 41–94
--- NOTE | 2021-03-15 01:53 | NUR ---
PATIENTAWAKEALERT RESTING IN BED.WITH WITH HIGH FLOW ON 40% 25 LITERS LUNGS DIMINISH TO LISTEN. ON MONITOR SINUS TACH. TEMP 99.4 PATIENT DENIES ANY PAIN ABDOMEN SOT ACTIVE BOWELSOUND. HAS F/C DRAINING LARGE URINE. BLOOD SUGAR 222 HS. COVERED WITH HUMALOG 4 UNITS S.Q. PATIENT HAS PROTONIX DRIP AT 10 CC/HR. 8MG.NO SIGNS OF ACUTE DISTRESS.
[2021-03-15] MEDS: VANCOMYCIN 1,500 MG in DEXTROSE 5% 500 ML IV SCH ×3 (04:00→23:06)
[2021-03-15] MEDS: PANTOPRAZOLE 80 MG in NACL 0.9% 100 ML IVP SCH ×3 (05:20→16:00)
[2021-03-15] MEDS: SUCRALFATE 1 GM TAB PO SCH ×5 (06:00→23:08)
[2021-03-15] MEDS: PIPERACILLIN/TAZOBACTAM 3.375 GM in DEXTROSE 5% 50 ML IV SCH ×5 (06:00→17:01)
[2021-03-15] MEDS: BLOOD GLUCOSE MONITORING 1 DEV DEV FS SCH ×4 (07:04→20:48)
[2021-03-15] MEDS: INSULIN LISPRO SLIDING SCALE 100 UNITS/ML VIAL SUBQ PRN ×4 (07:05→20:55)
--- NOTE | 2021-03-15 07:10 | NUR ---
RECEIVED REPORT FROM GRAIN MERCHANDISER RN FOR CONTINUITY OF CARE. AOX4, ABLE TO MAKE NEEDS KNOWN, AND RESTING IN BED, AIRBORNE PRECAUTION FOR RULE OUT TB. ST ON MONITOR. ON HIGH FLOW NASAL CANNULA AT FIO2 40% AND 25 L. ON CCHO DIET. PEÑALOZA CATH IN PLACE AND DRAINING YELLOW URINE. IV CLEAN DRY AND INTACT, ON RIGHT FOREARM INFUISING NS 0.9 AT 5 ML/HR. LAST ACCUCHECK 231, 4 UNITS COVERED. BUSINESS SUPPORT ASSOCIATE, PULSE OXIMETER, AND SAFETY MEASURES IN PLACE. HEAD OF BED 30 DEGREES, BED LOCKED, BED IN LOW POSITION. CALL LIGHT WITHIN REACH. WILL CONTINUE TO MONITOR.
[2021-03-15] MEDS: ACETAMINOPHEN 325 MG TAB PO PRN (07:15)
[2021-03-15] MEDS: INSULIN LANTUS 100 UNITS/ML 10 ML VIAL SUBQ SCH (08:06)
[2021-03-15] MEDS: FOLIC ACID 1 MG TAB PO SCH (08:08)
[2021-03-15] MEDS: LANSOPRAZOLE 30 MG CAPDR PO SCH ×2 (08:08→17:01)
--- NOTE | 2021-03-15 12:20 | NUR ---
DR. SANDRO GALVIN. UPDATED ON PATIENT STATUS AND CONDITION. ORDERS PLACED. WILL CONTINUE TO MONITOR.
[2021-03-15] MEDS ORDERED: EPOETIN ALFA-EPBX 2,000 UNITS/ML VIAL SUBQ SCH (13:00)
--- NOTE | 2021-03-15 13:30 | NUR ---
DR. ADRIEN GALVIN. UPDATED ON PATIENT STATUS AND CONDITION. WILL CONTINUE TO MONITOR.
[2021-03-15] MEDS ORDERED: EPOETIN ALFA-EPBX 4,000 UNITS/ML VIAL IV SCH (13:36)
--- NOTE | 2021-03-15 13:45 | NUR ---
DR. BLANCO CALLED. UPDATED ON PATIENT STATUS AND CONDITION. ORDERS PLACED. WILL CONTINUE TO MONITOR.
[2021-03-15] MEDS ORDERED: CYANOCOBALAMIN 1000 MCG/ML VIAL IM SCH (14:00)
[2021-03-15 15:46] LABS: HEMATOCRIT 18.8 % (36-52); HEMOGLOBIN 6.3 g/dL (12.0-18.0)
[2021-03-15 16:37] LABS: ANTI-NUCLEAR ANTIBODY TITER NEGATIVE (Negative)
--- NOTE | 2021-03-15 17:10 | NUR ---
DR. BLANCO CALLED. CONSULTED FAMILY ABOUT EDG PROCEDURE. WILL CONTINUE TO MONITOR.
--- NOTE | 2021-03-15 19:43 | NUR ---
ENDORSED TO INSTRUMENT MECHANIC RN FOR CONTINUITY OF CARE.
--- NOTE | 2021-03-15 19:44 | NUR ---
RECEIVED REPORT FROM DAY SHIFT NURSE. PT RESTING IN BED WITH HOB ELEVATED. PT AAOX4 AND ABLE TO MAKE NEEDS KNOWN. PT CURRENTLY ON HIGHFLOW NASAL CANNULA, PT TACHYPNEIC BUT DENIES ANY , SPO2 97%. ABDOMEN IS SOFT AND NON-TENDER, ACTIVE BOWEL SOUNDS NOTED. SKIN IS WARM, DRY, AND INTACT. PT WITH EDEMA ON ALL EXTREMITIES. PEÑALOZA CATHETER IN PLACE DRAINING WELL TO YELLOW URINE. PT CURRENTLY PULLED OUT IV ACCESS AT THIS TIME. WILL TRY TO INSERT LATER. PT DENIES ANY PAIN OR DISCOMFORT AT THIS TIME. NO REQUESTS MADE. SAFETY MEASURES IN PLACE. CALL LIGHT WITHIN REACH. WILL CONTINUE TO MONITOR.
--- NOTE | 2021-03-15 20:21 | NUR ---
PT HARD STICK. 2 RN TRIED BUT UNSUCCESSFUL. UNABLE TO GIVE IV MEDICATION AT THIS TIME. WILL CALL DOCTOR TO OBTAIN ORDER FOR PICC LINE INSERTION.
--- NOTE | 2021-03-15 21:55 | NUR ---
OBTAINED ORDER FROM DR PRECIADO TO INSERT PICC LINE. PT SIGNED CONSENT. PICC LINE NURSE CONTACTED.
--- NOTE | 2021-03-15 22:15 | NUR ---
PICC LINE NURSE AT BEDSIDE
[2021-03-15] MEDS: SODIUM FERRIC GLUCONATE 125 MG in NACL 0.9% 100 ML IV SCH (23:04)
--- NOTE | 2021-03-15 23:58 | NUR ---
VS STABLE. SCHEDULED MEDS GIVEN ORDERED. PT STILL TACHYPNEIC BUT NOT IN DISTRESS. PT WITH NO REQUESTS AT THIS TIME. PT KEPT COMFORTABLE. MONITORS IN PLACE. SAFETY PRECAUTIONS OBSERVED AT ALL TIME. WILL CONTINUE TO MONITOR.
[2021-03-16] VITALS (18 sets, daily range): BP systolic 107–139; BP diastolic 33–79
[2021-03-16] MEDS: PIPERACILLIN/TAZOBACTAM 3.375 GM in DEXTROSE 5% 50 ML IV SCH ×4 (00:53→18:00)
[2021-03-16] MEDS: PANTOPRAZOLE 80 MG in NACL 0.9% 100 ML IVP SCH ×3 (02:20→22:00)
--- NOTE | 2021-03-16 02:22 | NUR ---
ASLEEP. VS STABLE. HI FLOW IN PLACE. VISIBLE CHEST RISE AND FALL NOTED. NO S/SX OF DISTRESS OR DISCOMFORT NOTED. MONITORS IN PLACE. CALL LIGHT WITHIN REACH. SAFETY MEASURES IN PLACE, WILL CONTINUE TO MONITOR.
--- NOTE | 2021-03-16 04:10 | NUR ---
ALL DUE MEDICATIONS WERE ADMINISTERED BY MOUTH, SUBQ INJECTIONS WERE GIVEN, INSULIN COVERAGE WERE COVERED, WELL TOLERATED BY THE PATIENT
--- NOTE | 2021-03-16 04:13 | NUR ---
VS STABLE PT RESTING IN BED. PT REMINDED ABOUT NPO STATUS. PT AMENABLE. NO REQUESTS OR COMPLAINTS MADE AT THIS TIME. WILL CONTINUE TO MONITOR.
[2021-03-16] MEDS: VANCOMYCIN 1,500 MG in DEXTROSE 5% 500 ML IV SCH ×3 (04:15→21:00)
[2021-03-16] MEDS: SUCRALFATE 1 GM TAB PO SCH ×3 (05:19→18:06)
[2021-03-16] MEDS: BLOOD GLUCOSE MONITORING 1 DEV DEV FS SCH ×4 (06:29→21:41)
--- NOTE | 2021-03-16 06:31 | NUR ---
BLOOD SUGAR 237. PT ON NPO, INSULIN COVERAGE HELD FOR NOW. WILL CONTINUE TO MONITOR.
--- NOTE | 2021-03-16 07:11 | NUR ---
REPORT GIVEN TO WENDY CANTU FOR CONTINUITY OF CARE
--- NOTE | 2021-03-16 07:16 | NUR ---
RECEIVED REPORT FROM NIGHTSHIFT NURSE. PT RESTING IN BED. ABLE TO MAKE NEEDS KNOWN. RESPIRATIONS SHALLOW AND TACHY. RR IN 30'S SPO2 96% ON HFNC 35% FIO2 25L. SKIN WARM AND DRY TO TOUCH. PEÑALOZA CATH DRAINING VIA GRAVITY. PT HAS MARJAN PICC LINE CLEAN,DRY, AND INTACT. INFUSING PROTONIX 8ML. PT TO HAVE EGD TODAY. SAFETY MEASURES IN PLACE. WILL CONTINUE TO MONITOR
[2021-03-16] MEDS: LANSOPRAZOLE 30 MG CAPDR PO SCH ×2 (07:30→16:16)
[2021-03-16] MEDS: FOLIC ACID 1 MG TAB PO SCH (07:58)
[2021-03-16] MEDS ORDERED: EPOETIN ALFA-EPBX 4,000 UNITS/ML VIAL SUBQ SCH (09:00)
[2021-03-16] MEDS ORDERED: EPOETIN ALFA-EPBX 2,000 UNITS/ML VIAL IV SCH (09:00)
--- NOTE | 2021-03-16 09:05 | NUR ---
DR. HOLMAN AT BEDSIDE ASSESSING PATIENT
[2021-03-16] MEDS: INSULIN LANTUS 100 UNITS/ML 10 ML VIAL SUBQ SCH (09:15)
[2021-03-16] MEDS ORDERED: diphenhydrAMINE 50 MG/ML VIAL ONE (09:21)
[2021-03-16] MEDS ORDERED: fentaNYL citrate 0.05 MG/ML VIAL ONE (09:21)
[2021-03-16] MEDS ORDERED: MIDAZOLAM 5 MG/5 ML VIAL ONE (09:21)
[2021-03-16] MEDS: ACETAMINOPHEN 325 MG TAB PO PRN (09:29)
[2021-03-16] MEDS: MIDAZOLAM 2 MG/2 ML VIAL IVP ONE ×2 (10:25→10:46)
[2021-03-16] MEDS: fentaNYL citrate 0.05 MG/ML VIAL IVP ONE ×2 (10:26→10:46)
--- NOTE | 2021-03-16 10:30 | NUR ---
DR. FLOOD AT BEDSIDE PERFORMING EGD
[2021-03-16] MEDS: INSULIN LISPRO SLIDING SCALE 100 UNITS/ML VIAL SUBQ PRN ×3 (12:08→21:43)
--- NOTE | 2021-03-16 12:35 | NUR ---
CALL PLACE TO PHARMACY FOR THE VANCO PER PHARMACY STILL WAITING FOR THE VANCO THROUGH,
--- NOTE | 2021-03-16 12:51 | NUR ---
DR JURADO HERE,AWARE OF PT CONDITION,PERMDMAY DOWNGRADE
[2021-03-16 13:28] LABS: ANION GAP 10.8 (8-16); CARBON DIOXIDE 28.7 mmol/L (21-32); CREATININE 0.7 mg/dL (0.6-1.3); POTASSIUM 3.5 mmol/L (3.5-5.1)
--- NOTE | 2021-03-16 13:28 | NUR ---
ASSISTED PT ON BEDSIDE COMMODE AND BACK TO BED. PT HAD BM PT TOLERATED WELL. NO SIGNS OF DISTRESS. SAFETY MEASURES IN PLACE. WILL CONTINUE TO MONITOR
--- NOTE | 2021-03-16 14:17 | NUR ---
MOTHER CHANDLER CALLED AND WANTED AN UPDATE. UPDATE GIVEN. SAFETY MEASURES IN PLACE. WILL CONTINUE TO MONITOR
--- NOTE | 2021-03-16 15:00 | NUR ---
ENDORSED TO TELE NURSE SETH FOR CONTINUITY OF CARE
--- NOTE | 2021-03-16 15:21 | NUR ---
PT BROUGHT IN FROM THE INTENSIVE CARE ON WHEELCHAIR. PT IS IN STABLE CONDITION ON THE TELEMONITOR SHOWING SINUS TACH, AT 107. PT HAS BEEN PLACED ON HUMIDIFIED O2 AT 10L. PT DENIES SOB OR PAIN. PT PICC LINE ATTACHED TO VANCOMYCIN. PT EDUCATED ON POC, AND HOSPITAL SETTING. ALL SAFETY MEASURES IN PLACE. CALL LIGHT WITHIN REACH. WILL CONTINUE TO MONITOR.
--- NOTE | 2021-03-16 16:24 | NUR ---
BLOOD GLUCOSE IS 206, 4UNITS OF INSULIN ADMINISTERED PER MD ORDER. ANN-MARIE MEDICATION ADMINISTERED PER MD ORDER. PT TOLERATED ADMINISTRATION. ALL SAFETY MEASURES IN PLACE, CALL LIGHT WITHIN REACH. WILL CONTINUE TO MONITOR.
--- NOTE | 2021-03-16 17:34 | NUR ---
ANN-MARIE MEDICATION ADMINISTERED PER MD ORDER, PT VERBALIZED UNDERSTANDING. ALL SAFETY MEASURES IN PLACE. CALL LIGHT WITHIN REACH. WILL CONTINUE TO MONITOR.
--- NOTE | 2021-03-16 18:21 | NUR ---
PRN TYLENOL ADMINISTERED FOR FEVER, PT EDUCATION PROVIDED, PT VERBALIZED UNDERSTANDING. ALL SAFETY MEASURES IN PLACE. WILL CONTINUE TO MONITOR
--- NOTE | 2021-03-16 18:54 | NUR ---
ANN-MARIE ABX NONADMIN DUE TO VANCO STILL RUNNING INTO PICC LINE. ALL SAFETY MEASURES IN PLACE, CALL LIGHT WITHIN REACH. WILL CONTINUE TO MONITOR.
--- NOTE | 2021-03-16 19:02 | NUR ---
PT ENDORSED TO TIME CLOCK INSPECTOR NURSE FOR CONTINUITY OF CARE, POC DISCUSSED.
[2021-03-16] MEDS: SODIUM FERRIC GLUCONATE 125 MG in NACL 0.9% 100 ML IV SCH (20:00)
--- NOTE | 2021-03-16 20:00 | NUR ---
PATIENT RECEIVED IN BED ALERT AND COHERENT NO S/S OF DISTRESS, DENIES PAIN
--- NOTE | 2021-03-16 21:00 | NUR ---
ALL DUE PO MEDS WERE GIVEN, TOLERATED WELL BY THE PATIENT.
[2021-03-16] MEDS ORDERED: VANCOMYCIN 1,000 MG VIAL ONE (21:46)
[2021-03-16] MEDS ORDERED: VANCOMYCIN 500 MG VIAL ONE (21:47)
--- NOTE | 2021-03-17 | NUR ---
DUE IV MEDICATIONS WERE GIVEN, PATIENT WAS ASLEEP.
[2021-03-17] MEDS: PIPERACILLIN/TAZOBACTAM 3.375 GM in DEXTROSE 5% 50 ML IV SCH ×4 (00:42→17:23)
[2021-03-17] MEDS: SUCRALFATE 1 GM TAB PO SCH ×4 (00:44→17:22)
--- NOTE | 2021-03-17 02:00 | NUR ---
PATIENT WAS CALMLY ASLEEP.
[2021-03-17 04:00] VITALS: BP 132/79
--- NOTE | 2021-03-17 04:00 | NUR ---
PATIENT WAS CALMLY ASLEEP.
[2021-03-17] MEDS: VANCOMYCIN 1,500 MG in DEXTROSE 5% 500 ML IV SCH ×3 (04:34→20:00)
[2021-03-17] MEDS ORDERED: VANCOMYCIN 1,000 MG VIAL ONE (04:37)
[2021-03-17] MEDS ORDERED: VANCOMYCIN 500 MG VIAL ONE (04:37)
[2021-03-17 06:25] LABS: BASOPHILS % (AUTO) 0.2 % (0.0-2.0); EOSINOPHILS # (AUTO) 0.1 K/uL (0-0.4); EOSINOPHILS % (AUTO) 0.4 % (0.0-4.0); LYMPHOCYTES # (AUTO) 1.2 K/uL (2.0-11.5); LYMPHOCYTES % (AUTO) 7.2 % (20.5-51.1); MEAN CORPUSCULAR HEMOGLOBIN 30 pg (27-31); MEAN CORPUSCULAR HGB CONC 33 g/dL (33-37); MEAN CORPUSCULAR VOLUME 91.6 fL (80-94); MONOCYTES # (AUTO) 0.8 K/uL (0.8-1.0); MONOCYTES % (AUTO) 4.8 % (1.7-9.3); NEUTROPHILS # (AUTO) 14.8 K/uL (1.8-7.7); NEUTROPHILS % (AUTO) 87.4 % (42.2-75.2); PLATELET COUNT (AUTO) 488 K/uL (140-450); RED BLOOD CELL COUNT(AUTO) 1.82 MIL/uL (4.20-6.10); RED CELL DISTRIBUTION WIDTH 13.4 % (11.6-13.7); WHITE BLOOD COUNT (AUTO) 16.9 K/uL (4.8-10.8)
[2021-03-17 06:29] LABS: HEMATOCRIT 16.7 % (36-52); HEMOGLOBIN 5.5 g/dL (12.0-18.0)
[2021-03-17] MEDS: BLOOD GLUCOSE MONITORING 1 DEV DEV FS SCH ×4 (06:37→21:00)
[2021-03-17] MEDS: LANSOPRAZOLE 30 MG CAPDR PO SCH ×2 (06:37→17:22)
[2021-03-17] MEDS: INSULIN LISPRO SLIDING SCALE 100 UNITS/ML VIAL SUBQ PRN ×3 (06:39→17:24)
[2021-03-17 06:57] LABS: ALBUMIN 1.7 g/dL (3.4-5.0); ANION GAP 10.7 (8-16); CARBON DIOXIDE 26.7 mmol/L (21-32); CREATININE 0.6 mg/dL (0.6-1.3); POTASSIUM 3.4 mmol/L (3.5-5.1); TOTAL BILIRUBIN 0.4 mg/dL (0.0-1.0)
--- NOTE | 2021-03-17 07:15 | NUR ---
RECEIVED CHANGE OF SHIFT FROM THIRD OFFICER NURSE AT BEDSIDE FOR CONTINUITY OF CARE. DISCUSSED AND WILL CONTINUE WITH POC. PT CONDITION IS STABLE. PT IS AA&OX4. PT IS SR. ON 8L NC WITH NORMAL AND UNLABORED BREATHING. PT HAS MARJAN PICC LINE WITH DOUBLE LUMEN. SKIN IS WARM, DRY, AND INTACT. PT HAS PEÑALOZA IN PLACE DRAINING NORMALLY. WILL CONTINUE TO MONITOR.
[2021-03-17 08:00] VITALS: BP 127/78
[2021-03-17] MEDS: PANTOPRAZOLE 80 MG in NACL 0.9% 100 ML IVP SCH (08:00)
--- NOTE | 2021-03-17 08:25 | NUR ---
REPORTS WERE GIVEN TO INCOMING RN, TRANSFER OF CARE ENDORSED.
[2021-03-17] MEDS ORDERED: EPOETIN ALFA-EPBX 4,000 UNITS/ML VIAL SUBQ SCH (09:00)
[2021-03-17] MEDS: FOLIC ACID 1 MG TAB PO SCH (09:19)
[2021-03-17] MEDS: EPOETIN ALFA-EPBX 10,000 UNITS/ML VIAL SUBQ SCH (09:19)
--- NOTE | 2021-03-17 09:19 | NUR ---
ADMINISTERED SCHEDULED MEDICATIONS. PT TOLERATED MEDICATION ADMINISTRATION WELL. PT IS AWAKE AND CURRENTLY STABLE. PT DENIES ANY PAIN OR DISCOMFORT AT THE MOMENT. WILL CONTINUE TO MONITOR.
[2021-03-17] MEDS: INSULIN LANTUS 100 UNITS/ML 10 ML VIAL SUBQ SCH (09:21)
--- NOTE | 2021-03-17 09:34 | NUR ---
UNABLE TO ADMINISTER SCHEDULED PROTONIX BECAUSE PREVIOUS INFUSION IS STILL RUNNING.
--- NOTE | 2021-03-17 11:50 | NUR ---
ADMINISTERED 2 UNITS OF INSULIN FOR BG LEVEL OF 195 PER SLIDING SCALE. PT CONDITION IS STABLE. WILL CONTINUE TO MONITOR.
[2021-03-17 12:00] VITALS: BP 126/76
--- NOTE | 2021-03-17 13:10 | NUR ---
PT CONDITION IS STABLE. PT IS CURRENTLY SLEEPING. NO SIGNS OF DISTRESS OR PAIN. WILL CONTINUE TO PERFORM FREQ ROUNDING.
--- NOTE | 2021-03-17 15:12 | NUR ---
03/17/21 RD FOLLOW UP COMPLETED PLEASE REFER TO NUTRITION ASSESSMENT UNDER CARE ACTIVITY FOR ESTIMATED NUTRITIONAL NEEDS. 1.CONTINUE FULL LIQUID MEDICALLY APPROPRIATE 2.IF/WHEN MEDICALLY APPROPRIATE RECOMMEND ADVANCE TO [facility] 60 GM DIET 3.RD WILL PROVIDE DIABETES NUTRITION EDUCATION ON F/U VISIT 4.RD TO FOLLOW-UP 3-5 DAYS, MODERATE RISK YESI PINZON RD
--- NOTE | 2021-03-17 15:45 | NUR ---
PT CONDITION IS STABLE. PT IS TAKING A NAP AND DOES NOT APPEAR TO BE IN PAIN OR DISTRESS. WILL CONTINUE TO MONITOR.
[2021-03-17 16:00] VITALS: BP 127/82
--- NOTE | 2021-03-17 17:12 | NUR ---
PT CONDITION IS STABLE. DENIES PAIN OR DISCOMFORT. WILL CONTINUE TO MONITOR.
--- NOTE | 2021-03-17 19:00 | NUR ---
PT RECEIVED IN BED, ALERT AND ORIENTED X 4. RN DISCUSSED WITH PATIENT MEDICAL PLAN OF CARE, MEDICATION MANAGEMENT, FALL AND SAFETY INTERVENTION AND ONGOING EDUCATION RELATED TO PT CARE. PATIENT VERBALIZED CONCERNS REGARDING IV MANAGEMENT, ANTIBIOTIC THERAPY AND DIABETIC MANAGEMENT. PT RESTING IN BED ABLE TO MAKE NEEDS KNOWN. PATIENT CONVERSING WITH SIGNIFICANT OTHER ON PHONE REGARDING HIS MEDICAL CARE AND MANAGEMENT. W. RR IN 24 EVEN AND UNLABORED, SPO2 96% ON HFNC 35% FIO2 25L. SKIN WARM AND DRY TO TOUCH. PEÑALOZA CATH DRAINING VIA GRAVITY. PT HAS MARJAN PICC LINE CLEAN, DRY, AND INTACT. RN DISCUSSED WITH PATIENT MEDICAL PLAN OF CARE, FALL AND SAFETY MEASURES AND MEDICATIONS. WILL CONTINUE TO MONITOR AND EDUCATE PATIENT. PT COMPLIANT AND RECEPTIVE TO RN PLAN OF CARE. NO ACUTE DISTRESS NOTED.
--- NOTE | 2021-03-17 19:56 | NUR ---
GAVE CHANGE OF SHIFT REPORT TO NIGHT NURSE AT BEDSIDE FOR CONTINUITY OF CARE. DISCUSSED POC. PT CONDITION IS STABLE.
[2021-03-17 20:00] VITALS: BP 127/78
[2021-03-18] VITALS: BP 132/82
[2021-03-18] MEDS: PIPERACILLIN/TAZOBACTAM 3.375 GM in DEXTROSE 5% 50 ML IV SCH ×4 (00:21→17:57)
[2021-03-18] MEDS: SUCRALFATE 1 GM TAB PO SCH ×4 (00:22→17:58)
[2021-03-18 04:00] VITALS: BP 124/78
[2021-03-18] MEDS: VANCOMYCIN 1,500 MG in DEXTROSE 5% 500 ML IV SCH ×3 (04:00→20:00)
[2021-03-18] MEDS: PANTOPRAZOLE 40 MG INJ VIAL IVP SCH ×2 (09:00→21:00)
[2021-03-18] MEDS: INSULIN LANTUS 100 UNITS/ML 10 ML VIAL SUBQ SCH (09:00)
[2021-03-18] MEDS: FOLIC ACID 1 MG TAB PO SCH (09:00)
[2021-03-18] MEDS: BLOOD GLUCOSE MONITORING 1 DEV DEV FS SCH ×4 (09:00→21:00)
[2021-03-18] MEDS: INSULIN LISPRO SLIDING SCALE 100 UNITS/ML VIAL SUBQ PRN ×2 (11:13→22:35)
[2021-03-18 12:48] VITALS: BP 125/77
[2021-03-18 16:00] VITALS: BP 142/76
[2021-03-18] MEDS: ACETAMINOPHEN 325 MG TAB PO PRN (17:58)
--- NOTE | 2021-03-18 19:00 | NUR ---
PATIENT RECIEVED IN BED, ALERT AND ORIENTED X 4. RN DISCUSSED WITH PATIENT PLAN OF CARE, MEDICATION MANAGEMENT, FALL AND SAFETY INTERVENTION AND MEDICAL PLAN OF CARE. PT RESTING IN BED ABLE TO MAKE NEEDS KNOWN. RR IN 24, SPO2 96% ON HFNC 35% FIO2 25L. SKIN WARM AND DRY TO TOUCH. PEÑALOZA CATH DRAINING VIA GRAVITY. PT HAS MARJAN PICC LINE CLEAN,DRY, AND INTACT. PT TO HAVE EGD COMPLETED. DISCUSSED WITH PATIENT MEDICAL PLAN OF CARE, FALL AND SAFETY MEASURES IN PLACE. WILL CONTINUE TO MONITOR. PATIENT RECEPTIVE TO RN PLAN OF CARE. NO ACUTE DISTRESS NOTED.
[2021-03-18 20:00] VITALS: BP 138/72
[2021-03-19] VITALS: BP 136/74
[2021-03-19] MEDS: PIPERACILLIN/TAZOBACTAM 3.375 GM in DEXTROSE 5% 50 ML IV SCH ×4 (00:23→17:38)
[2021-03-19 04:00] VITALS: BP 132/76
[2021-03-19] MEDS: VANCOMYCIN 1,500 MG in DEXTROSE 5% 500 ML IV SCH ×3 (04:49→20:00)
[2021-03-19] MEDS: SUCRALFATE 1 GM TAB PO SCH ×5 (06:17→23:25)
[2021-03-19] MEDS: INSULIN LISPRO SLIDING SCALE 100 UNITS/ML VIAL SUBQ PRN ×3 (06:22→23:34)
[2021-03-19] MEDS: BLOOD GLUCOSE MONITORING 1 DEV DEV FS SCH ×4 (06:25→21:00)
--- NOTE | 2021-03-19 07:15 | NUR ---
RECEIVED PATIENT FROM ENGLISH LANGUAGE ARTS TEACHER NURSE FOR CONTINUITY OF CARE. PATIENT IS A/A/O X4. RESTING IN BED. RESPIRATORY EVEN AND UNLABORED, ON 3L OXYGEN NC. NO SIGN OF DISTRESS NOTED. PATIENT DENIES ANY PAIN OR DISCOMFORT. ABDOMEN SOFT, NON DISTENDED. SKIN WARM, DRY, NON DIAPHORETIC. SWOLLEN NOTED ON EXTREMITIES. NO IV ACCESS. PEÑALOZA IN PLACE WITH CLEAR YELLOW URINE. PATIENT ABLE TO MAKE NEED KNOWN. PLAN OF CARE DISCUSSED, PATIENT VERBALIZED UNDERSTANDING. PRECAUTION IN PLACE. CALL LIGHT WITHIN REACH. WILL CONTINUE TO MONITOR.
[2021-03-19 08:00] VITALS: BP 128/74
[2021-03-19] MEDS: PANTOPRAZOLE 40 MG INJ VIAL IVP SCH ×2 (08:44→21:00)
[2021-03-19] MEDS: FOLIC ACID 1 MG TAB PO SCH (08:44)
[2021-03-19] MEDS: INSULIN LANTUS 100 UNITS/ML 10 ML VIAL SUBQ SCH (08:44)
--- NOTE | 2021-03-19 08:44 | NUR ---
SCHEDULE MEDICATIONS GIVEN WITH EDUCATION. PATIENT VERBALIZED UNDERSTANDING. NO SIGN OF DISTRESS NOTED. PRECAUTION IN PLACE. CALL LIGHT WITHIN REACH. WILL CONTINUE TO MONITOR.
--- NOTE | 2021-03-19 11:56 | NUR ---
BLOOD SUGAR CHECK 236, 4 UNITS OF INSULIN GIVEN TO COVER. PATIENT TOLERATED WELL. PRECAUTION IN PLACE. CALL LIGHT WITHIN REACH. WILL CONTINUE TO MONITOR.
[2021-03-19 12:00] VITALS: BP 126/75
--- NOTE | 2021-03-19 12:00 | NUR ---
PEÑALOZA CATHETER REMOVED, PATIENT TOLERATED WELL. DENIES ANY PAIN OR DISCOMFORT. PRECAUTION IN PLACE. CALL LIGHT WITHIN REACH. WILL CONTINUE TO MONITOR.
--- NOTE | 2021-03-19 13:39 | NUR ---
PATIENT'S MOM, CHANDLER, CALLED TO UPDATE PATIENT'S CONDITION. HIS MOM REQUESTS TO GIVE PATIENT IRON PILL AND VITAMIN B12. WILL FORWARD PATIENT'S FAMILY WISH TO MD. ALL QUESTIONS WERE ANSWERED. WILL CONTINUE TO GIVE UPDATE.
[2021-03-19] MEDS: IRON SUCROSE COMPLEX 100 MG/5 ML VIAL IVP SCH (14:15)
--- NOTE | 2021-03-19 15:15 | NUR ---
PATIENT IS RESTING IN BED, NO SIGN OF DISTRESS NOTED. PRECAUTION IN PLACE. CALL LIGHT WITHIN REACH. WILL CONTINUE TO MONITOR.
[2021-03-19 16:00] VITALS: BP 136/82
--- NOTE | 2021-03-19 16:12 | NUR ---
PATIENT IS SITTING IN BED, ABLE TO AMBULATE TO BATHROOM INDEPENDENTLY. NO SIGN OF DISTRESS NOTED. PRECAUTION IN PLACE. WILL CONTINUE TO MONITOR.
--- NOTE | 2021-03-19 16:52 | NUR ---
BLOOD SUGAR CHECK 126. NO INSULIN NEED TO COVER. PATIENT IS N SIGN OF DISTRESS NOTED. PRECAUTION IN PLACE. CALL LIGHT WITHIN REACH. WILL CONTINUE TO MONITOR.
[2021-03-19] MEDS: ACETAMINOPHEN 325 MG TAB PO PRN ×2 (17:34→23:25)
--- NOTE | 2021-03-19 17:34 | NUR ---
SCHEDULE MEDICATION GIVEN. PATIENT COMPLAINS OF HEADACHE, PRN TYLENOL GIVEN WITH EDUCATION. PATIENT VERBALIZED UNDERSTANDING. NO SIGN OF DISTRESS NOTED. PRECAUTION IN PLACE. CALL LIGHT WITHIN REACH. WILL CONTINUE TO MONITOR.
--- NOTE | 2021-03-19 18:30 | NUR ---
PATIENT IS SITTING UP IN BED. HAVING DINNER. NO SIGN OF DISTRESS NOTED. PRECAUTION IN PLACE. CALL LIGHT WITHIN REACH. WILL CONTINUE TO MONITOR.
--- NOTE | 2021-03-19 19:35 | NUR ---
ENDORSED PATIENT TO PERFORMANCE IMPROVEMENT MANAGER NURSE FOR CONTINUITY OF CARE. PATIENT IS STABLE.
[2021-03-19 20:00] VITALS: BP 118/69
[2021-03-20] VITALS: BP 134/89
--- NOTE | 2021-03-20 00:54 | NUR ---
PATIENT AWAKE ALERT IN ISOLATION TO R/O T.B. ON BED SIDE TABLE IS A PICC LINE WHICH WAS PULLED OUT BY PATIENT. PATIENT HAS NO VEINS TO START A REG LINE. NIEVES IS TO COME IN TO START ANOTHER PICC LINE. PATIENT HAS 02 ON AT 3 LITERS. ON MONITOR SINUS TACH. LUNGS DIMINISH. ABDOMEN SOFT TO TOUCH. NO C/O OF ACUTE PAIN. HAS NO IV SITE. NOT ABLE TO GET IVPB MEDICATION. BLOOD SUGAR HS 167 RECEIVED 2 UNITS HUMALOG S.Q. TEMP 97.8. AT 2325 ASK FOR TYLENOL FOR HEADACHE. NO OTHER C/O NOTED.
[2021-03-20] MEDS: VANCOMYCIN 1,500 MG in DEXTROSE 5% 500 ML IV SCH (03:46)
[2021-03-20 04:00] VITALS: BP 125/84
[2021-03-20] MEDS: PIPERACILLIN/TAZOBACTAM 3.375 GM in DEXTROSE 5% 50 ML IV SCH ×3 (06:00)
[2021-03-20] MEDS: SUCRALFATE 1 GM TAB PO SCH ×2 (06:05→11:43)
--- NOTE | 2021-03-20 06:11 | NUR ---
Texted Ronaldo CANTU and PICC RN, and Ronaldo CANTU was aware, waiting for the consent to be signed by
[2021-03-20] MEDS: BLOOD GLUCOSE MONITORING 1 DEV DEV FS SCH ×2 (06:59→11:43)
--- NOTE | 2021-03-20 07:15 | NUR ---
RECEIVED PATIENT FROM EXECUTIVE CHAIRMAN OF THE BOARD NURSE FOR CONTINUITY OF CARE. PATIENT IS A/A/O X4. RESTING IN BED. RESPIRATORY EVEN AND UNLABORED, ON 3L OXYGEN NC. NO SIGN OF DISTRESS NOTED. PATIENT DENIES ANY PAIN OR DISCOMFORT. ABDOMEN SOFT, NON DISTENDED. SKIN WARM, DRY, NON DIAPHORETIC. SWOLLEN NOTED ON EXTREMITIES. NO IV ACCESS. AMBULATE TO USE BATHROOM. PATIENT ABLE TO MAKE NEED KNOWN. PLAN OF CARE DISCUSSED, PATIENT VERBALIZED UNDERSTANDING. PRECAUTION IN PLACE. CALL LIGHT WITHIN REACH. WILL CONTINUE TO MONITOR.
[2021-03-20 08:00] VITALS: BP 149/89
[2021-03-20] MEDS: PANTOPRAZOLE 40 MG INJ VIAL IVP SCH (09:00)
[2021-03-20] MEDS: FOLIC ACID 1 MG TAB PO SCH (09:16)
[2021-03-20] MEDS: EPOETIN ALFA-EPBX 10,000 UNITS/ML VIAL SUBQ SCH (09:16)
--- NOTE | 2021-03-20 09:16 | NUR ---
BLOOD SUGAR 152, SCHEDULE MEDICATIONS GIVEN WITH EDUCATION. PATIENT VERBALIZED UNDERSTANDING. PRECAUTION IN PLACE. CALL LIGHT WITHIN REACH. WILL CONTINUE TO MONITOR.
[2021-03-20] MEDS: INSULIN LANTUS 100 UNITS/ML 10 ML VIAL SUBQ SCH (09:18)
[2021-03-20 09:56] LABS: BASOPHILS # (AUTO) 0.1 K/uL (0.00-0.22); EOSINOPHILS # (AUTO) 0.2 K/uL (0-0.4); MONOCYTES # (AUTO) 0.8 K/uL (0.8-1.0)
[2021-03-20 10:07] LABS: BASOPHILS % (AUTO) 0.8 % (0.0-2.0); EOSINOPHILS % (AUTO) 1.3 % (0.0-4.0); HEMATOCRIT 21.4 % (36-52); LYMPHOCYTES # (AUTO) 1.7 K/uL (2.0-11.5); LYMPHOCYTES % (AUTO) 13.8 % (20.5-51.1); MEAN CORPUSCULAR HEMOGLOBIN 29 pg (27-31); MEAN CORPUSCULAR HGB CONC 32 g/dL (33-37); MEAN CORPUSCULAR VOLUME 91.3 fL (80-94); MONOCYTES % (AUTO) 6.4 % (1.7-9.3); NEUTROPHILS # (AUTO) 9.4 K/uL (1.8-7.7); NEUTROPHILS % (AUTO) 77.7 % (42.2-75.2); PLATELET COUNT (AUTO) 567 K/uL (140-450); RED BLOOD CELL COUNT(AUTO) 2.35 MIL/uL (4.20-6.10); RED CELL DISTRIBUTION WIDTH 13.7 % (11.6-13.7)
--- NOTE | 2021-03-20 10:36 | NUR ---
SATURATION 99% ON SUPPLEMENTAL OXYGEN AT 3 LPM VIA NC TITRATED FIO2 TO 2 LPM BRO/RN NOTIFIED
[2021-03-20 10:40] LABS: HEMOGLOBIN 6.8 g/dL (12.0-18.0)
--- NOTE | 2021-03-20 10:52 | NUR ---
PATIENT IS RESTING IN BED, NO SIGN OF DISTRESS NOTED. PRECAUTION IN PLACE. CALL LIGHT WITHIN REACH. WILL CONTINUE TO MONITOR.
[2021-03-20] MEDS ORDERED: SUCR1TAB56 PO (11:29)
[2021-03-20] MEDS ORDERED: FERR325E14 PO (11:29)
[2021-03-20] MEDS ORDERED: FOLI1TAB90 PO (11:29)
[2021-03-20] MEDS ORDERED: LANTUS SUBQ (11:29)
[2021-03-20] MEDS ORDERED: BLOO-697 MC (11:29)
[2021-03-20] MEDS ORDERED: LANC-947 TP (11:29)
[2021-03-20] MEDS ORDERED: [UNRECOGNIZED DRUG - CODE] SUBQ (11:29)
[2021-03-20] MEDS ORDERED: PANT40PD7 PO (11:29)
[2021-03-20] MEDS ORDERED: METF-1022 PO (11:29)
[2021-03-20] MEDS: INSULIN LISPRO SLIDING SCALE 100 UNITS/ML VIAL SUBQ PRN (11:44)
--- NOTE | 2021-03-20 11:45 | NUR ---
BLOOD SUGAR CHECK 218, 4 UNITS OF INSULIN GIVEN WITH EDUCATION. PATIENT TOLERATED WELL. NO SIGN OF DISTRESS NOTED. PRECAUTION IN PLACE. CALL LIGHT WITHIN REACH. WILL CONTINUE TO MONITOR.
[2021-03-20 12:00] VITALS: BP 135/80
[2021-03-20 12:26] LABS: ANION GAP 15.6 (8-16); CARBON DIOXIDE 25.3 mmol/L (21-32); CREATININE 0.7 mg/dL (0.6-1.3); POTASSIUM 3.9 mmol/L (3.5-5.1)
[2021-03-20 12:47] VITALS: BP 135/80
--- NOTE | 2021-03-20 14:00 | NUR ---
PATIENT IS RESTING IN BED, WATCHING TV. NO SIGN OF RESPIRATORY DISTRESS NOTED. PRECAUTION IN PLACE. CALL LIGHT WITHIN REACH. WILL CONTINUE TO MONITOR.
[2021-03-20] MEDS: IRON SUCROSE COMPLEX 100 MG/5 ML VIAL IVP SCH (14:15)
--- NOTE | 2021-03-20 16:00 | NUR ---
DISCHARGE EDUCATION GIVEN, PATIENT VERBALIZED UNDERSTANDING. ARM BAND ARE REMOVED. PATIENT DENIES ANY SOB OR TROUBLE BREATHING. FAMILY IS WAITING AT LOBBY. WILL WALK PATIENT TO LOBBY TO DISCHARGE TO FAMILY.
--- NOTE | 2021-03-20 16:05 | NUR ---
DC PLANNING PATIENT IS A 45-YEAR-OLD MALE ADMITTED ON THE [facility]/ER ON 03/10/21. DUE TO SHORTNESS OF BREATH,AND BACK PAIN. TUFTING SUPERVISOR MET WITH PATIENT AT BEDSIDE TO DISCUSS AND COLLECT HIS COLLATERAL INFORMATION. PATIENT STATED THAT HE IS FEELING BETTER, REPORTED LIVING WITH HIS MOTHER CHANDLER PIZARRO AT HER HOME IN [facility]. PER PATIENT HE HAS ADVANCE DIRECTIVES IN PLACE AND WAS NOT INTERESTED ON GETTING A.D. INF. AND RESOURCES PROVIDED BY FRACISCO. PATIENT REPORTED HAVING NO ISSUES GETTING AND TAKING HIS PRESCRIBED MEDICATIONS AT HOME. PATIENT ALSO REPORTED BEEN ABLE TO AMBULATE INDEPENDENTLY WITH OUT ANY ASSISTANCE AND NOT NEEDING OR HAVING ANY DME, PER PATIENT HE IS NOT CURRENTLY EMPLOYED DUE TO HIS MEDICAL ISSUES. PER PATIENT HE HAS A PRIMARY MD AT THE [facility] SELECTED BY HIS [facility]. BUT HE HAS NOT YET GOT HIS FIRS VISIT WITH MD FRACISCO INFORMED PATIENT THAT SW WILL BE SETTING UP A FOLLOW UP APPOINTMENT PCP WITH IN THE 7 DAYS AFTER PATIENT DISCHARGE FROM [facility]. PATIENT AGREED AND THANK THIS EXPANSION JOINT BUILDER. PER PATIENT HIS MOTHER WILL BE ASSISTING WITH TRANSPORTATION BACK HOME AFTER HE IS DC FROM [facility]. SW WILL FOLLOW UP WITH PATIENT NEEDED. TUFTING SUPERVISOR CONTACT [facility] AT TO MAKE A FOLLOW UP APPOINTMENT FOR PATIENT AFTER HIS DISCHARGE. SPOKE TO LOKESH WHO PROVIDED PATIENT SCHEDULED FOR PATIENT ON 03/27/21 AT 10:40AM. LOCATION FOR APPOINTMENT IS [address] [place] [address]. FRACISCO INFORM PATIENT OF HIS SCHEDULED APPOINTMENT WITH ASSIGNED PCP WITH IN 7 DAYS OF HIS DISCHARGE FROM [facility]. FRACISCO PROVIDED PATIENT WITH A NOTE LISTING TIME, DATE AND ADDRESS INFORMATION FOR HIS FOLLOW UP APPOINTMENT. PATIENT AGREED AND THANK THIS EXPANSION JOINT BUILDER.
--- NOTE | 2021-03-20 18:50 | NUR ---
RECEIVED CALL FROM DR BLACKMON REGARDING PATIENT DISCHARGE MEDICATION. PER , CHANGE PROTONIX 40MG IV TO PROTONIX 40MG PO. AND CHANGE LANTUS TO WHATEVER INSULIN THAT HIS INSURANCE COVER. WILL CALL PHARMACY AND DELIVER THE MESSAGE.
--- NOTE | 2021-03-20 18:56 | NUR ---
CALL PHARMACY AT [phone], NO KITCHEN STEWARD/STEWARDESS PHONE, UNABLE TO LEAVE VOICE MESSAGE.
== END 2021-03-20 16:44 | disposition home or self-care (01) | DRG 720 ==
LOC: MED 21:53 → MMU 03-10 01:13 → MIC 03-10 07:55 → MTU 03-16 15:20
PROVIDERS: ADMIT Internal Medicine; ATTEND Internal Medicine
PROC: 5A0935A Assistance with Respiratory Ventilation, Less than 24 Consecutive Hours, High Flow/Velocity Cannula (ICD-10-PCS; 2021-03-10)
PROC: 5A0935A Assistance with Respiratory Ventilation, Less than 24 Consecutive Hours, High Flow/Velocity Cannula (ICD-10-PCS; 2021-03-11)
PROC: 3E0G8GC Introduction of Other Therapeutic Substance into Upper GI, Via Natural or Artificial Opening Endoscopic (ICD-10-PCS; principal; 2021-03-11 10:00)
PROC: 5A0935A Assistance with Respiratory Ventilation, Less than 24 Consecutive Hours, High Flow/Velocity Cannula (ICD-10-PCS; 2021-03-12)
PROC: 5A0935A Assistance with Respiratory Ventilation, Less than 24 Consecutive Hours, High Flow/Velocity Cannula (ICD-10-PCS; 2021-03-13)
PROC: 5A0935A Assistance with Respiratory Ventilation, Less than 24 Consecutive Hours, High Flow/Velocity Cannula (ICD-10-PCS; 2021-03-14)
PROC: 5A0935A Assistance with Respiratory Ventilation, Less than 24 Consecutive Hours, High Flow/Velocity Cannula (ICD-10-PCS; 2021-03-15)
PROC: 0DJ08ZZ Inspection of Upper Intestinal Tract, Via Natural or Artificial Opening Endoscopic (ICD-10-PCS; 2021-03-16)
DX: A41.50 Gram-negative sepsis, unspecified (principal); J96.01 Acute respiratory failure with hypoxia; N17.9 Acute kidney failure, unspecified; E11.10 Type 2 diabetes mellitus with ketoacidosis without coma; K26.4 Chronic or unspecified duodenal ulcer with hemorrhage; J18.9 Pneumonia, unspecified organism; D62 Acute posthemorrhagic anemia; R65.20 Severe sepsis without septic shock; K29.60 Other gastritis without bleeding; K20.90 Esophagitis, unspecified without bleeding; K25.9 Gastric ulcer, unspecified as acute or chronic, without hemorrhage or perforation; K44.9 Diaphragmatic hernia without obstruction or gangrene; E66.01 Morbid (severe) obesity due to excess calories; I10 Essential (primary) hypertension; R45.1 Restlessness and agitation; Z20.822 Contact with and (suspected) exposure to COVID-19; Z68.37 Body mass index [BMI] 37.0-37.9, adult
CPT/HCPCS: 36415; 36600; 71045; 71250; 74022; 80048; 80053; 80202; 80305; 81003; 82009; 82150; 82272; 82550; 82553; 82728; 82803; 82948; 83540; 83605; 83690; 83735; 83880; 84100; 84484; 85018; 85025; 85045; 85610; 85730; 86038; 86430; 87040; 87070; 87081; 87116; 87190; 87205; 87206; 87804; 93005; 96365; 96367; 96375; 99291; C1769; C9113; J0171; J0692; J0696; J1200; J1815; J2250; J2270; J2543; J2916; J3010; J3370; J3420; J3490; J7030; J7060; P9046; Q0092; Q5106; U0003